=== PATIENT | female | born 1985 | race Caucasian/White ===

== ENCOUNTER 2022-04-28 10:19 | Outpatient (CLI) | payer OTHER, SELFPAY ==
--- NOTE | ~2022-04-28 | US_ITS ---
Abdominal Sonogram: Real-time sonographic imaging of the abdomen was performed. Clinical History: Abdominal pain Findings: The liver appears normal with no evidence of mass lesion or bile duct dilatation. Main por tang vein demonstrates normal direction of flow. The spleen is normal in size without evidence of foca l lesion. The gallbladder is partially distended, and contains echogenic, shadowing gallstones. No d efinite gallbladder wall thickening. The common bile duct measures 2 mm. The visualized pancreas, ao rta, and IVC are unremarkable. The right kidney measures 11.4 cm in length and the left kidney measu res 11.6 cm. There is no hydronephrosis or renal calculus. Impression: Cholelithiasis. Reviewed, dictated and finalized at location [] [employer] Impression: Cholelithiasis.
== END 2022-04-28 10:20 | disposition home or self-care (01) ==
LOC: CHSIMG 10:22
PROVIDERS: PCP Physician Assistant; Visit Provider Physician Assistant
DX: K80.20 Calculus of gallbladder without cholecystitis without obstruction (principal)
CPT/HCPCS: 76700

== ENCOUNTER 2022-11-21 05:20 | Emergency (ER) | payer OTHER, SELFPAY ==
--- NOTE | ~2022-11-21 | CT_ITS ---
CT of the Abdomen and Pelvis: Indication: Abdominal pain Technique: 2.5 mm axial scans were obtained through the abdomen and pelvis following intravenous adm inistration of 100 cc of Omnipaque 350. Dose reduction technique was used on this scan by utilizing a utomated exposure control and iterative reconstruction technique. The dose-length product (DLP) was 7 82.21 mGy-cm. Findings: Scans through the lung bases are unremarkable. The liver, spleen, pancreas, adrenals and kidneys are within normal limits. Mild gallbladder wall thi ckening noted, nonspecific. There are atherosclerotic calcifications of the aorta. No lymphadenopath y. No bowel obstruction or bowel wall thickening. There is no evidence to suggest acute appendicitis. Images through the pelvis were performed. Urinary bladder unremarkable. No adnexal mass seen. No asci smitha. Impression: Mild gallbladder wall thickening, nonspecific finding. No other significant abnormality identified. Reviewed, dictated and finalized at [facility]. Impression: Mild gallbladder wall thickening, nonspecific finding. No other significant abnormality identified.
[2022-11-21 05:20] VITALS: BP 173/92; PULSE 60; RESP 20; TEMP 36.8; O2SAT 99
[2022-11-21] MEDS: MORPHINE SULFATE (*CRX) 4 MG/ML INJ IV PUSH (05:53)
[2022-11-21] MEDS: SODIUM CHLORIDE 0.9% IV 1,000 ML 999 ML IV CONT (05:54)
[2022-11-21] MEDS: ONDANSETRON INJ 4 MG/2 ML VIAL IV PUSH (05:54)
[2022-11-21 05:56] LABS: Basophils Absolute Auto 0.09 K/mm3 (0.00-0.10); Basophils Percent Auto 0.9 % (0.0-1.0); Eosinophils Absolute Auto 0.32 K/mm3 (0.02-0.50); Eosinophils Percent Auto 3.1 % (1.0-6.0); Hematocrit 38.8 % (35.0-49.0); Hemoglobin 12.6 g/dL (12.0-15.0); Immature Granulocyte Absolute 0.02 K/mm3 (0.00-0.00); Immature Granulocyte Percent A 0.2 % (0.0-0.0); Lymphocytes Absolute Auto 3.12 K/mm3 (1.10-4.50); Lymphocytes Percent Auto 30.3 % (18.0-42.0); Mean Corpuscular HGB Conc 32.5 g/dL (32.0-36.0); Mean Corpuscular Hemoglobin 29.4 pg (27.0-31.0); Mean Corpuscular Volume 90.7 fL (78.0-102.0); Mean Platelet Volume 11.6 fl (9.2-11.8); Monocytes Absolute Auto 0.65 K/mm3 (0.10-0.90); Monocytes Percent Auto 6.3 % (2.0-11.0); Neutrophils Absolute Auto 6.1 K/mm3 (1.7-7.2); Neutrophils Percent Auto 59.2 % (50.0-70.0); Platelet Count Result 283 K/mm3 (150-420); Red Blood Count 4.28 M/mm3 (4.20-5.40); Red Cell Distribution Width 14.2 % (11.6-14.4); White Blood Count 10.3 K/mm3 (4.8-10.8)
[2022-11-21 05:59] LABS: Appearance Urine Clear (Clear); Bilirubin Urine Negative (Negative); Blood Urine Negative (Negative); Color Urine Light Yellow (Yellow); Glucose Urine UA Negative (Negative); Ketones Urine Negative (Negative); Leukocyte Esterase Ur Negative LEU/UL (Negative); Nitrate Urine Negative (Negative); Pregnancy On Board Control Positive; Protein Urine Negative (Negative); Specific Grav Ur 1.015 (1.010-1.020); Urine Pregnancy Test Negative; Urobilinogen Urine 0.2 mg/dL (0.2-1.0); pH Urine 6.5 (5.0-8.0)
[2022-11-21 06:00] LABS: Add Urine Microscopic? NO
[2022-11-21 06:02] LABS: INR 0.9; Prothrombin Time 10.2 Seconds (9.50-12.10)
[2022-11-21 06:09] VITALS: BP 142/78; PULSE 52; RESP 18; O2SAT 99
--- NOTE | 2022-11-21 06:13 | ED.GENADULT ---
HPI - General Adult General Chief complaint: Abdominal Pain Stated complaint: abdominal pain; nausea Time Seen by Provider: 11/21/22 05:38 History of Present Illness HPI narrative: Angelina is a 37F with a PMH of pyloric stenosis s/p surgery, gallstones and PUD that presented to the ED with abdominal pain that started last night. She has pain in the epigastric pain that waxes and wanes and sometimes radiates to her back. It does not feel like her ulcer pain. She had one episode of non-bloody emesis last night as well. There is no diarrhea, dysuria or hematuria. Last BM was yesterday. She states there is no way she could be . Related Data Home Medications Medication Instructions Recorded Confirmed Vyvanse 30 mg PO DAILY 11/21/22 11/21/22 buspirone 10 mg PO BID PRN Anxiety 11/21/22 11/21/22 omeprazole 40 mg PO BID 11/21/22 11/21/22 venlafaxine 75 mg PO DAILY 11/21/22 11/21/22 Allergies Allergy/AdvReac Type Severity Reaction Status Date / Time No Known Allergies Allergy Verified 11/21/22 05:35 Review of Systems Review of Systems: All systems reviewed & are unremarkable except as noted in HPI and below Exam Const: General: healthy appearing and no acute distress Nutritional Appearance: well nourished Orientation/consciousness: patient oriented x3 HENMT: Head: normal to inspection Ears: external ears normal Face/Nose/Sinus: Normal external nose present Face and sinus: normal facial exam Eyes: Conjunctivae: conjunctivae normal Pupils: Equal, round and reactive pupils present EOM: EOMs intact bilaterally Neck: Neck: normal visual inspection Chest: Chest palpation & inspection: normal inspection of the chest Resp: Effort & Inspection: normal respiratory effort Auscultation: clear to auscultation bilaterally Cardio: Rate: regular rate Rhythm: regular rhythm GI: Inspection: non-distended GI Palp: Yes Soft to palpation, Yes Tenderness to palpation present (GI) (epigastric and RUQ), No Guarding due to palpation present (GI), No Rigid due to palpation, No Palpable mass present and No Rebound tenderness present Auscultation: Hypoactive bowel sounds present : General: Yes bladder normal to palpation and Yes no CVA tenderness Skin: General skin exam: normal color Rashes: no rashes Wounds: no wounds Neuro: General: patient oriented x3 and moves all extremities Speech: normal speech Extrem: General: normal to inspection Psych: Mental Status: mental status grossly normal Affect: normal affect Course Course Emergency Course: Ordered fluids, morphine, Zofran, UA, Urine Hcg, CT and labs as below. CT of the Abdomen and Pelvis: Indication: Abdominal pain Technique:? 2.5 mm axial scans were obtained through the abdomen and pelvis following intravenous administration of 100 cc of Omnipaque 350. Dose reduction technique was used on this scan by utilizing automated exposure control and iterative reconstruction technique. The dose-length product (DLP) was 782.21 mGy-cm. Findings:? Scans through the lung bases are unremarkable. The liver, spleen, pancreas, adrenals and kidneys are within normal limits. Mild gallbladder wall thickening noted, nonspecific. There are atherosclerotic calcifications of the aorta.? No lymphadenopathy. No bowel obstruction or bowel wall thickening. There is no evidence to suggest acute appendicitis. Images through the pelvis were performed. Urinary bladder unremarkable. No adnexal mass seen. No ascites. Impression: Mild gallbladder wall thickening, nonspecific finding. No other significant abnormality identified. CBC and chemistries were largely unremarkable. UA normal. She was feeling better after fluids and morphine. Vital Signs Vital signs: Vital Signs Temperature 98.2 F 11/21/22 05:20 Pulse Rate 60 11/21/22 05:20 Respiratory Rate 20 11/21/22 05:20 Blood Pressure 173/92 H 11/21/22 05:20 Pulse Oximetry 99 11/21/22 05:20 Oxygen Delivery Room Air 11/21/22 05:20
[2022-11-21 06:19] LABS: Alanine Aminotransferase 34 U/L (14-59); Albumin Level 3.4 g/dL (3.4-5.0); Alkaline Phosphatase 62 U/L (46-116); Anion Gap 9 mmol/L (8-16); Aspartate Amino Transferase 17 U/L (15-37); Bilirubin,Total 0.1 mg/dL (0.00-1.00); Blood Urea Nitrogen 11 mg/dL (7-18); Calcium 8.8 mg/dL (8.5-10.1); Carbon Dioxide 26 mmol/L (21-32); Chloride 105 mmol/L (98-108); Estimated CRCL calculation 94 ml/min; Estimated Glomerular Filt Rate > 60; Glucose 125 mg/dL (70-99); Lipase 32 U/L (16-77); Osmolality Calculated 290 mOsm/kg (285-295); Potassium 3.9 mmol/L (3.5-5.1); Sodium 140 mmol/L (136-145)
[2022-11-21 06:29] LABS: CRP < 0.5 mg/dL (0.0-0.9)
[2022-11-21 06:30] VITALS: PULSE 66; RESP 18; O2SAT 98
== END 2022-11-21 07:14 | disposition home or self-care (01) ==
PROVIDERS: Emergency Provider Family Medicine; PCP Family Medicine
DX: R10.9 Unspecified abdominal pain (principal)
CPT/HCPCS: 36415; 74177; 80053; 81003; 81025; 83605; 83690; 85025; 85610; 86140; 96361; 96374; 96375; 99284; J2270; J2405; J7030; Q9967

== ENCOUNTER 2022-12-13 02:02 | Emergency (ER) | payer OTHER, SELFPAY ==
--- NOTE | ~2022-12-13 | US_ITS ---
Limited Abdominal Sonogram: Real-time sonographic imaging of the right upper quadrant was performed. Clinical History: Cholecystitis Findings: The liver appears minimally echogenic, with no evidence of mass lesion or bile duct dilata tion. Main portal vein demonstrates normal direction of flow. The gallbladder is partially distended, with a 2.8 cm shadowing gallstone present. Gallbladder wall is thickened to 8 mm. The common bile du ct measures 3 mm. The visualized pancreas, aorta, and IVC are unremarkable. Impression: Cholelithiasis with gallbladder wall thickening. Constellation of findings raises possibility of acut e cholecystitis, although sonographic Cano's sign is negative. Correlate clinically. Consider HIDA scan as indicated. Reviewed, dictated and finalized at location . Impression: Cholelithiasis with gallbladder wall thickening. Constellation of findings rais es possibility of acute cholecystitis, although sonographic Cano's sign is ne gative. Correlate clinically. Consider HIDA scan as indicated.
--- NOTE | ~2022-12-13 | CT_ITS ---
CT of the Abdomen and Pelvis: Indication: Abdominal pain Technique: 2.5 mm axial scans were obtained through the abdomen and pelvis following intravenous adm inistration of 100 cc of Omnipaque 350. Dose reduction technique was used on this scan by utilizing a utomated exposure control and iterative reconstruction technique. The dose-length product (DLP) was 7 30.45 mGy-cm. COMPARISON: 11/21/2022 Findings: Scans through the lung bases are unremarkable. The liver, spleen, pancreas, adrenals and kidneys are within normal limits. There is mild gallbladder wall thickening, without definite gallstone. There are atherosclerotic calcifications of the aorta. No lymphadenopathy. No bowel obstruction or bowel wall thickening. Normal appendix. Images through the pelvis were performed. Urinary bladder unremarkable. No adnexal mass seen. No asci smitha. Impression: Mild gallbladder wall thickening, nonspecific. Consider ultrasound and/or HIDA scan for further evalu ation for gallbladder disease, as indicated. Reviewed, dictated and finalized at [facility]. Impression: Mild gallbladder wall thickening, nonspecific. Consider ultrasound and/or HIDA scan for further evaluation for gallbladder disease, as indicated.
[2022-12-13 02:14] VITALS: BP 143/86; PULSE 78; RESP 18; TEMP 36.5; O2SAT 99
--- NOTE | 2022-12-13 02:28 | ECG_ITS ---
Measurements Intervals [place] Rate: 73 P: 60 CA: 134 QRS: 28 QRSD: 101 T: 36 QT: 392 QTc: 435 Interpretive Statements SINUS RHYTHM WITH A SHORT CA INTERVAL NO PREVIOUS ECG AVAILABLE FOR COMPARISON Electronically Signed On 12-13-2022 19:41:07 CDT by Angelina Jain M.D.
--- NOTE | 2022-12-13 02:30 | ED.ABDPAIN ---
HPI - Abdominal Pain General Chief Complaint: Abdominal Pain Stated Complaint: abdominal pain Source: patient Mode of arrival: ambulatory Limitations: no limitations History of Present Illness HPI narrative: Patient is a 29-year-old female with recurrent abdominal pain in the upper abdomen. She has been through multiple workups and prior specialists. She is awaiting a garment sorter specialist at this time. So far to date, no findings have been made according to the patient. MD elicited complaint: abdominal pain Pertinent past history: none Onset (ago): hour(s) Pain Consistency: constant Location: epigastric, LUQ and RUQ Severity: severe Pain scale (0-10): 10 Quality: sharp Radiation: none Migration to: no migration Exacerbating factors: nothing Relieving factors: nothing Context: confirms other ( episodic and recurrent abdominal pains) Associated symptoms: denies other symptoms Related Data Home Medications Medication Instructions Recorded Confirmed buspirone 10 mg tablet 10 mg PO BID 12/13/22 12/13/22 lisdexamfetamine 30 mg capsule 30 mg PO DAILY 12/13/22 12/13/22 (Vyvanse) omeprazole 40 mg capsule,delayed 40 mg PO BID 12/13/22 12/13/22 release venlafaxine 75 mg capsule,extended 75 mg PO DAILY 12/13/22 12/13/22 release 24 hr Allergies Allergy/AdvReac Type Severity Reaction Status Date / Time No Known Allergies Allergy Verified 11/21/22 05:35 Review of Systems Review of Systems: All systems reviewed & are unremarkable except as noted in HPI and below Constitutional: Constitutional: Reports no additional constitutional complaints Eyes: Eyes: Reports no additional eye complaints ENT: Reports system reviewed and no additional complaints, except as documented Cardiovascular: Cardiovascular: Reports no additional cardiovascular complaints Respiratory: Respiratory: Reports no additional respiratory complaints Gastrointestinal: Gastrointestinal: Reports no additional gastrointestinal complaints Genitourinary: Genitourinary: Reports no additional female genitourinary complaints Musculoskeletal: Musculoskeletal: Reports no additional musculoskeletal complaints Integumentary/Breasts: Skin/Breast: Reports system reviewed and no additional complaints, except as docu Neurologic: Reports system reviewed and no additional complaints, except as documented Psychiatric: Psychiatric: Reports no additional psychiatric complaints Endocrine: Endocrine: Reports no additional endocrine complaints Hematologic/Lymphatic: Hematologic/Lymphatic: Reports no additional hematologic/lymphatic complaints Allergic/Immunologic: Allergic/Immunologic: Reports no additional allergic/immunologic complaints Exam Const: General: healthy appearing Nutritional Appearance: well nourished Orientation/consciousness: patient oriented x3 Limitations: no limitations HENMT: Head: normal to inspection Eyes: Conjunctivae: conjunctivae normal Neck: Neck: normal visual inspection Chest: Chest palpation & inspection: normal inspection of the chest Resp: Effort & Inspection: normal respiratory effort Auscultation: clear to auscultation bilaterally Cardio: Rate: regular rate Rhythm: regular rhythm GI: Inspection: distended GI Palp: Yes Soft to palpation, Yes Tenderness to palpation present (GI), No Guarding due to palpation present (GI), No Rigid due to palpation, No Hernia present, No Palpable mass present and No Rebound tenderness present Auscultation: Hypoactive bowel sounds present : General: Yes bladder normal to palpation Back/Spine/Pelvis: Back: no CVA tenderness Skin: General skin exam: normal color Rashes: no rashes Wounds: no wounds Neuro: General: patient oriented x3, moves all extremities and no meningeal signs Cranial nerves: Yes Nystagmus not present Extrem: General: normal to inspection Psych: Mental Status: mental status grossly normal Course Vital Signs Vital signs: Vital Signs
[2022-12-13] MEDS: MORPHINE SULFATE (*CRX) 2 MG/ML INJ IV PUSH (02:47)
[2022-12-13] MEDS: ONDANSETRON INJ 4 MG/2 ML VIAL IV PUSH (02:47)
[2022-12-13 02:58] LABS: Basophils Absolute Auto 0.08 K/mm3 (0.00-0.10); Basophils Percent Auto 0.9 % (0.0-1.0); Eosinophils Absolute Auto 0.31 K/mm3 (0.02-0.50); Eosinophils Percent Auto 3.5 % (1.0-6.0); Hematocrit 38.8 % (35.0-49.0); Immature Granulocyte Absolute 0.02 K/mm3 (0.00-0.00); Immature Granulocyte Percent A 0.2 % (0.0-0.0); Lymphocytes Absolute Auto 3.16 K/mm3 (1.10-4.50); Lymphocytes Percent Auto 35.8 % (18.0-42.0); Mean Corpuscular HGB Conc 33.5 g/dL (32.0-36.0); Mean Corpuscular Hemoglobin 29.7 pg (27.0-31.0); Mean Corpuscular Volume 88.8 fL (78.0-102.0); Mean Platelet Volume 10.7 fl (9.2-11.8); Monocytes Absolute Auto 0.61 K/mm3 (0.10-0.90); Monocytes Percent Auto 6.9 % (2.0-11.0); Neutrophils Absolute Auto 4.7 K/mm3 (1.7-7.2); Neutrophils Percent Auto 52.7 % (50.0-70.0); Platelet Count Result 303 K/mm3 (150-420); Red Blood Count 4.37 M/mm3 (4.20-5.40); Red Cell Distribution Width 12.9 % (11.6-14.4); White Blood Count 8.8 K/mm3 (4.8-10.8)
[2022-12-13 03:00] LABS: Appearance Urine Clear (Clear); Bilirubin Urine Negative (Negative); Blood Urine Negative (Negative); Color Urine Yellow (Yellow); Glucose Urine UA Negative (Negative); Ketones Urine Trace (Negative); Leukocyte Esterase Ur Negative (Negative); Nitrate Urine Negative (Negative); Protein Urine Negative (Negative); Specific Grav Ur >= 1.030 (1.010-1.020); Urobilinogen Urine 0.2 mg/dL (0.2-1.0)
[2022-12-13 03:01] LABS: Add Urine Microscopic? YES; Amorphous Sediment Urine Few; Bacteria Urine 1+ /hpf; Mucus Urine Heavy /lpf; Squamous Epithelial Cell Urine Many /hpf (Few)
[2022-12-13 03:03] LABS: Pregnancy On Board Control Positive; Urine Pregnancy Test Negative
[2022-12-13 03:13] LABS: Alanine Aminotransferase 27 U/L (14-59); Albumin Level 3.7 g/dL (3.4-5.0); Alkaline Phosphatase 69 U/L (46-116); Anion Gap 7 mmol/L (8-16); Aspartate Amino Transferase < 10 U/L (15-37); Bilirubin,Total 0.3 mg/dL (0.00-1.00); Blood Urea Nitrogen 22 mg/dL (7-18); Carbon Dioxide 29 mmol/L (21-32); Chloride 103 mmol/L (98-108); Estimated CRCL calculation 81 ml/min; Estimated Glomerular Filt Rate > 60; Glucose 118 mg/dL (70-99); Lipase 32 U/L (16-77); Osmolality Calculated 292 mOsm/kg (285-295); Potassium 3.5 mmol/L (3.5-5.1); Sodium 139 mmol/L (136-145); Total Protein 7.2 g/dL (6.4-8.2)
[2022-12-13 03:15] LABS: Troponin I < 4.0 ng/L (0.00-60.4)
[2022-12-13] MEDS: MORPHINE SULFATE (*CRX) 4 MG/ML INJ IV PUSH ×2 (03:35→07:47)
[2022-12-13 04:00] VITALS: BP 138/74; PULSE 85; RESP 18; O2SAT 97
[2022-12-13] MEDS: KETOROLAC 30 MG/ML VIAL (*BKC) IV PUSH (04:11)
--- NOTE | 2022-12-13 04:35 | PC.NURSE ---
Pt still c/o some pain and discomfort and pain meds not helping c pain. Pt wanting to know when CT report will be back. Call placed to state rad by this RN for length of time before a report is back. Told by stat rad it is taking 2.5-3 hrs for reads and it will be at least another hour before this pts. CT is read. Pt informed on status, pt given warm blanket and lying on side. ERP Dr Jack informed on status. Pts VSS, will continue to await report before POC is determined.
--- NOTE | 2022-12-13 05:35 | PC.NURSE ---
Pt resting, still awaiting CT results. Call wyatt at pt side.
[2022-12-13 06:09] VITALS: BP 111/64; PULSE 74; RESP 18; O2SAT 99
--- NOTE | 2022-12-13 06:10 | PC.NURSE ---
Pt resting on cot side lying position. She now reports her pain is much less and tolerable. VSS, explained to pt about wait for CT results and hope to have some reading soon. Pt very understandable about wait times. Call wyatt at side, pt has ice chips per request and OK per ERP.
--- NOTE | 2022-12-13 06:46 | PC.NURSE ---
Reading of CT back and report reviewed by ERP, pt informed on POC for consult c a surgeon at [place]. Calls made, pt remians stable at this time and pain is much better per pt report.
[2022-12-13] MEDS: FAMOTIDINE 20 MG/2 ML VIAL IV PUSH (07:47)
[2022-12-13 07:50] VITALS: BP 129/68; PULSE 68; RESP 14; TEMP 36.3; O2SAT 99
[2022-12-13 08:28] LABS: Lactic Acid Reflex 0.7 mmol/L (0.4-2.0)
[2022-12-13 09:00] VITALS: BP 128/65; PULSE 62; RESP 18; TEMP 36.8; O2SAT 99
== END 2022-12-13 09:09 | disposition short-term general hospital (02) ==
PROVIDERS: Internal Medicine Critical Care Medicine; Emergency Provider Emergency Medicine; PCP Physician Assistant
DX: K82.9 Disease of gallbladder, unspecified (principal)
CPT/HCPCS: 36415; 74177; 76705; 80053; 81001; 81025; 83605; 83690; 84484; 85025; 93005; 96374; 96375; 96376; 99285; J1885; J2270; J2405; Q9967

== ENCOUNTER 2023-02-03 11:28 | Outpatient (CLI) | payer OTHER, SELFPAY ==
--- NOTE | 2023-02-03 11:53 | ECG_ITS ---
Measurements Intervals [facility] Rate: 51 P: 61 [place]: 126 QRS: 30 QRSD: 94 T: 20 QT: 411 QTc: 379 Interpretive Statements SINUS BRADYCARDIA MINIMAL Q WAVES- HIGH LATERAL LEADS BORDERLINE ST-T WAVE ABNORMALITY- INFERIOR LEADS BORDERLINE ECG COMPARED TO ECG 12/13/2022 02:41:18 SINUS BRADYCARDIA NOW PRESENT Electronically Signed On 02-03-2023 14:44:41 CDT by Irineo Solano D.O.
[2023-02-03 12:47] LABS: Amylase 50 U/L (30-110)
== END 2023-02-03 11:29 | disposition home or self-care (01) ==
LOC: ANHLAB 11:30
PROVIDERS: PCP Physician Assistant; Referring Provider Anesthesiology; Visit Provider Surgery
DX: K80.10 Calculus of gallbladder with chronic cholecystitis without obstruction (principal); Z72.0 Tobacco use; Z01.818 Encounter for other preprocedural examination; R94.31 Abnormal electrocardiogram [ECG] [EKG]
CPT/HCPCS: 36415; 82150; 86850; 86900; 86901; 93005

== ENCOUNTER 2023-02-05 02:18 | Day surgery (SDC) | payer OTHER, SELFPAY ==
[2023-01-31 14:26] VITALS: BMI 25.9
--- NOTE | 2023-01-31 14:34 | PC.NURSE ---
Report to the Outpatient Waiting Room, entrance under the green pavilion located off [facility], at time _0700 on date 02/05/23_. Planned Procedure Time: _0900. Time changes happen often and if your time is changed the preop area will call you the afternoon before. - You and your visitor will be asked to self-screen and do not enter if you have any COVID symptoms. - A mask is optional within the hospital at this time. Patients may have clear liquids (water, carbonated beverages, clear teas, apple juice) until 3 hours prior to surgery with a maximum of 20 ounces. - No food from midnight until time of surgery - Infants may have breast milk until 4 hours before surgery, formula 6 hours prior to surgery. - Children will be allowed to drink immediately following surgery. If applicable, please bring a bottle or sippy cup to assist with drinking. Juice, water, soda, and popsicles are readily available. For infants on formula, please bring formula the day of surgery. Pacifiers are allowed. Take the following medications with a SIP of water the morning of surgery: VYVANCE, BUSPIRONE AND TYLENOL IF NEEDED DO NOT STOP ANY OF YOUR OTHER PRESCRIPTION MEDICATIONS PRIOR TO SURGERY ?EXCEPT THE FOLLOWING Medications to discontinue per physician VITAMIN D , IBUPROFEN Date to take last dose 01/31/23 Please no make-up, nail greenlandic, hairspray, perfume, deodorant, or body powder the day of surgery. No jewelry (including any body piercings) or valuables the day of surgery, leave them at home. Please take a shower or bath the night before, or the morning of, surgery with HIBICLENS antibacterial soap. Wear comfortable, loose fitting clothing. Children are encouraged to wear pajamas. - Jewelry must be removed prior to entering the operating room. Rings and piercings that are not removed may be cut off. - The hospital will not accept responsibility for valuables. - Please leave all valuables, including medications, at home the day of surgery. If you are going home after surgery, a licensed chain saw driver must drive you home. - NO public transportation without another adult if you receive anesthesia. - We recommend that an adult stay with you for 24 hours following discharge. - We also recommend that you do not drive, make important decision, drink alcoholic beverages, or take any drugs that were not prescribed by your health care provider for at least 24 hours after your discharge time. For Pediatric surgeries, we recommend two adults accompany the child home. Follow any additional instructions given to you from your surgeon. If you or anyone in your household have experienced Covid symptoms in the past week, please notify your surgeon or the nurse liaison at the phone number below for possible testing. Telephone instructions given to ___DAVIS and asked if any additional questions and then verbalized understanding. Patient advised to call surgeon office or pre surgery nurse liaison [phone] if any additional questions.
[2023-02-05] VITALS (8 sets, daily range): BP systolic 102–143; BP diastolic 52–78; PULSE 48–72; RESP 14–20; TEMP 36.2–36.3; O2SAT 99–100
--- NOTE | 2023-02-05 07:49 | WPDANESEPPF ---
Anes - Initial Pre Proc Eval Procedure: Operation Date: 02/05/23 09:00 Proposed Procedures p Laparoscopic Cholecystectomy, Possible Open - Frankie Lozano MD Date/Time: 02/05/23 07:49 Surgeon: Frankie Lozano MD Pre Op Diagnosis: Chr Cholecystitis with Calculous Patient Data Age: 37 Gender: F Height: 1.7 m Weight: 75 kg Allergies Allergy/AdvReac Type Severity Reaction Status Date / Time No Known Allergies Allergy Verified 01/31/23 14:25 Home Medications Medication Instructions Recorded Confirmed Type buspirone 10 mg tablet 10 mg PO BID PRN Anxiety 12/13/22 01/31/23 History omeprazole 40 mg capsule,delayed 40 mg PO BID 12/13/22 01/31/23 History release lisdexamfetamine 40 mg capsule 40 mg PO DAILY 01/10/23 01/31/23 History (Vyvanse) cholecalciferol (vitamin D3) 1,250 1,250 mcg PO WEEKLY 01/17/23 01/31/23 History mcg (50,000 unit) tablet acetaminophen 325 mg tablet 650 mg PO [id number] PRN Pain 01/31/23 01/31/23 History (Tylenol) ibuprofen 200 mg tablet 400 mg PO Q6H PRN Pain 01/31/23 01/31/23 History Patient hx anesthesia problems: none Family hx anesthesia problems: none Results Review: All pre-operative results and documents have been reviewed as part of the pre-operative evaluation. [facility] Past Medical History Medical History Anxiety Surgical History Surgical History History of repair of pyloric stenosis in 1999 History of tonsillectomy Family History Family History Mother Diabetes mellitus Hypertension Grandparent , lung cancer Cancer Other Cerebrovascular accident Heart disease Social History Social History Smoking packs per day: 1 Smoking cigarettes per day: 20.0 Years smoked: 20 Smoking pack-years: 20.00 Smoking status: Current every day smoker Alcohol intake: former Substance use type: marijuana Other substance usage details: RARELY Living arrangements: with family Additional living arrangements comments: living with children and current boyfriend Arcenio Posadas Final PreProcedure Day of Procedure 02/05/23 07:49 Patient weight: overweight Heart: regular rate and rhythm Lungs: clear to auscultation Airway: Mallampati scale class II Neurological: alert and oriented Last oral intake: >/= 8 hours ASA classification: II Emergent: no Anesthetic plan: proceed Anesthesia type and monitoring: general ETT and standard monitoring Results Review: All pre-operative results and documents have been reviewed as part of the pre-operative evaluation. Informed Consent: The patient's anesthetic plan and its attendant risks and benefits were discussed with the patient/family/POA. Questions were solicited and answers provided to the satisfaction of the patient/family/POA.
[2023-02-05] MEDS: KETOROLAC 15 MG/ML VIAL (*BKC) IV PUSH (08:25)
[2023-02-05] MEDS: ACETAMINOPHEN 500 MG TABLET 1000 MG PO (08:25)
[2023-02-05] MEDS: LACTATED RINGERS 1,000 ML 30 ML IV CONT ×2 (08:25→10:35)
[2023-02-05] MEDS: SCOPOLAMINE 1.5 MG PATCH TRANSDERM (08:35)
--- NOTE | 2023-02-05 09:08 | WPDHPUPDATE1 ---
History and Physical Update Update Date/Time: 02/05/23 09:08 History and Physical has been reviewed, including an updated exam of the patient. There are NO changes in the patient's condition. Risks, benefits, and alternatives have been discussed and questions answered. Patient agrees to proceed with procedure.
[2023-02-05] MEDS: ceFAZolin 2 GM/D5W 50 ML 2 GM/50 ML BAG IVPB (09:17)
[2023-02-05] MEDS: BUPivacaine HCL 0.5% PF 30 ML VIAL 20 ML INFILTRATE (09:46)
[2023-02-05] MEDS: LIDO 1%/EPINEPHRINE 1:100,000 20 ML VIAL INFILTRATE (09:47)
--- NOTE | 2023-02-05 10:43 | W.PM.PROC2 ---
Procedure Note - Detailed Date of Procedure 02/05/23 Pre-op Diagnosis Chr Cholecystitis with Calculous Post-op Diagnosis Same Procedure Performed Laparoscopic cholecystectomy Surgeon Frankie Lozano MD [employer] Operator Greg JOHNSON Anesthesia General Indications patient is a 37-year-old white female who has been having issues with intermittent but chronic right upper quadrant abdominal pain worse with eating. She had an ultrasound performed showed thickening of the gallbladder wall with a large gallstone. She appears to have chronic cholecystitis secondary cholelithiasis and presents now for an elective laparoscopic cholecystectomy. Findings Patient had large almost 2cm gallstone. Gallbladder wall was mildly thickened but no acute inflammatory changes. There were some mild old acute inflammatory adhesions of the omentum to the gallbladder wall. Description of Procedure After informed consent was obtained patient brought to the operating room where she was placed in supine position and general endotracheal anesthesia was administered. The abdomen was then prepped and draped usual sterile fashion. A time-out was then performed correctly identifying the patient as well as procedure to be performed and verified she was given perioperative IV antibiotics. I then made a small periumbilical incision with a scalpel then with traction upwards on the anterior abdominal wall a Veress needle was placed into the abdomen without difficulty. The abdomen was then insufflated to adequate pneumoperitoneum of 15mmHg of CO2. A 5mm Optiview port was then used to enter the abdomen at the periumbilical trocar port site. Once inside the abdomen I then placed an epigastric 10mm trocar port 2 right lateral subcostal 5mm trocar ports all under direct visualization the gallbladder is visualized in the gallbladder wall was mildly thickened with some chronic inflammatory changes. There were some chronic adhesions of the omentum to the gallbladder wall but there is no acute inflammatory changes. A laparoscopic grasper is used to of the gallbladder at the dome and it was elevated over the right half to 3rd of the right shoulder. I then proceeded to strip down the omental adhesions to the gallbladder wall bluntly without difficulty. A 2nd grasper was then used to hold the gallbladder at the infundibulum. I then proceeded to dissect down along the infundibular gallbladder stripping away the visceral peritoneum until I identified the cystic duct. The cystic duct was then dissected out circumferentially. The cystic duct lymph node was also identified this was dissected free of the surrounding tissues and removed from the abdomen is sent to pathology with the gallbladder. The cystic artery was then identified dissected out circumferentially as well. Posterior wall the gallbladder at the infundibulum dissected free liver to the critical view was obtained. At this point I then placed 2 clips proximally cystic duct and 2 clips distally high on infundibular gallbladder. Cystic duct was divided with Endo Anna. In a similar fashion cystic artery clipped and divided as well. The gallbladder was then resected off the liver utilizing electrocautery. No gallbladder stones or bile was spilled. Once the gallbladder is free from the liver is placed into an Endo-Catch bag and brought out through the epigastric port site. The gallbladder had a large approximate 2cm gallstone within it. The gallbladder and stones sent to pathology for examination. I then irrigated out the right upper quadrant the abdomen gallbladder fossa copious sterile saline solution. Hemostasis was excellent. There is no evidence of bile leak. Then aspirated the fluid from the right upper quadrant the abdomen from the pelvis. I then removed all the trocar ports under visualization all port sites appeared hemostatic. I then allowed the abdomen decompressed. I irrigated out the port sites sterile saline solution hemostasis w
[2023-02-05] MEDS: oxyCODONE HCL (*CRX) 5 MG TAB IR PO (11:49)
== END 2023-02-05 12:30 | disposition home or self-care (01) ==
PROVIDERS: PCP Physician Assistant; Visit Provider Surgery
PROC: 0FT44ZZ Resection of Gallbladder, Percutaneous Endoscopic Approach (ICD-10-PCS; CPT 47562; principal; 2023-02-05 09:00)
DX: K80.10 Calculus of gallbladder with chronic cholecystitis without obstruction (principal); F41.9 Anxiety disorder, unspecified; F17.210 Nicotine dependence, cigarettes, uncomplicated; F12.90 Cannabis use, unspecified, uncomplicated
CPT/HCPCS: 47562; 88304; A9270; C1713; J0690; J1100; J1885; J2250; J2405; J2704; J3010; J7030; J7120

== ENCOUNTER 2025-02-13 23:04 | Emergency (ER) | payer OTHER, SELFPAY ==
--- NOTE | ~2025-02-13 | XR_ITS ---
Examination: XR shoulder LT min 2V Clinical History: LEFT SHOULDER PAIN. ARM IN SLING. HX OF LEFT AC INJURY. Comparison: None Technique: 4 views left shoulder Findings/impression: 1. No fracture or dislocation left shoulder. 2. No significant degenerative changes. Reviewed, dictated and finalized at location R.
[2025-02-13 23:05] VITALS: BP 136/74; PULSE 86; RESP 20; TEMP 36.6; O2SAT 97
--- NOTE | 2025-02-13 23:06 | ED.UPPEXIN ---
HPI - Extremity Injury (Upper) General Chief Complaint: Medical Clearance Stated Complaint: DISLOCATED SHOULDER Time Seen by Provider: 02/13/25 23:05 Source: patient and police Mode of arrival: ambulatory Limitations: no limitations History of Present Illness HPI narrative: Patient is a 39-year-old female with a left shoulder pain for the past 3-4 weeks. She is incarcerated at this time and was brought here for medical clearance of her left shoulder. MD complaint: injury to: left and shoulder Onset (ago): week(s) (3-4) Other injuries: none Place: home Severity: moderate Severity scale (1-10): 4 Relieving factors: immobilization Exacerbating factors: movement of extremity Context: other (Unknown) Associated symptoms: denies other symptoms Treatments prior to arrival: cold therapy Related Data Home Medications ?Medication ?Instructions ?Recorded ?Confirmed ?Last Taken ?Type buspirone 10 mg tablet 10 mg PO BID PRN Anxiety 12/13/22 01/31/23 Unknown History omeprazole 40 mg capsule,delayed 40 mg PO BID 12/13/22 01/31/23 Unknown History release lisdexamfetamine 40 mg capsule 40 mg PO DAILY 01/10/23 01/31/23 Unknown History (Vyvanse) cholecalciferol (vitamin D3) 1,250 1,250 mcg PO WEEKLY 01/17/23 01/31/23 Unknown History mcg (50,000 unit) tablet acetaminophen 325 mg tablet 650 mg PO [id number] PRN Pain 01/31/23 01/31/23 Unknown History (Tylenol) ibuprofen 200 mg tablet 400 mg PO Q6H PRN Pain 01/31/23 01/31/23 Unknown History Allergies Allergy/AdvReac Type Severity Reaction Status Date / Time No Known Allergies Allergy Verified 02/13/25 23:47 Review of Systems Review of Systems: All systems reviewed & are unremarkable except as noted in HPI and below Constitutional: Constitutional: Reports no additional constitutional complaints Eyes: Eyes: Reports no additional eye complaints ENT: Reports system reviewed and no additional complaints, except as documented Cardiovascular: Cardiovascular: Reports no additional cardiovascular complaints Respiratory: Respiratory: Reports no additional respiratory complaints Gastrointestinal: Gastrointestinal: Reports no additional gastrointestinal complaints Genitourinary: Genitourinary: Reports no additional female genitourinary complaints Musculoskeletal: Musculoskeletal: Reports no additional musculoskeletal complaints Integumentary/Breasts: Skin/Breast: Reports system reviewed and no additional complaints, except as docu Neurologic: Reports system reviewed and no additional complaints, except as documented Psychiatric: Psychiatric: Reports no additional psychiatric complaints Endocrine: Endocrine: Reports no additional endocrine complaints Hematologic/Lymphatic: Hematologic/Lymphatic: Reports no additional hematologic/lymphatic complaints Allergic/Immunologic: Allergic/Immunologic: Reports no additional allergic/immunologic complaints PMFSH Past Medical History Medical History Anxiety Surgical History Surgical History History of tonsillectomy History of repair of pyloric stenosis in 1999 Family History Family History Mother Diabetes mellitus Hypertension Grandparent , lung cancer Cancer Other Cerebrovascular accident Heart disease Social History Social History Smoking packs per day: 1 Smoking cigarettes per day: 20.0 Years smoked: 20 Smoking pack-years: 20.00 Smoking status: Current every day smoker Alcohol intake: former Substance use type: marijuana Other substance usage details: RARELY Living arrangements: with family Additional living arrangements comments: living with children and current boyfriend Exam Const: General: healthy appearing Nutritional Appearance: well nourished Orientation/consciousness: patient oriented x3 HENMT: Head: normal to inspection Ears: external ears normal Face/Nose/Sinus: Normal external nose present Eyes: Conjunctivae: conjunctivae normal Pupils: Equal, round and reactive pupils present EOM: EOMs intact bilaterally Neck: Neck: normal visual inspection Chest: Chest palpation & inspection: normal inspection of the chest Resp: Effort & Inspection: normal respiratory effort and not labored Auscultation: clear to auscultation bilaterally and no crackles Cardio: Rate: regular rate Rhythm: regular rhythm Heart sounds: no murmurs GI: Inspection: non-distended GI Palp: Yes Soft to palpation and No Tenderness to palpation present (GI) Auscultation: normal bowel sounds : General: Yes bladder normal to palpation Back/Spine/Pelvis: Back: no CVA tenderness Skin: General skin exam: normal color Rashes: no rashes Wounds: no wounds Neuro: General: patient oriented x3, moves all extremities and no meningeal signs Extrem: General: normal to inspection, no clubbing, cyanosis or edema and no pedal edema Other: Left shoulder tenderness to palpation however range of motion is also painful but the joint is in the socket without dislocation Psych: Mental Status: mental status grossly normal Affect: normal affect Attitude: cooperative Course Vital Signs Vital signs: Vital Signs Temperature 36.6 C 02/13/25 23:05 Pulse Rate 86 02/13/25 23:05 Respiratory Rate 20 02/13/25 23:05 Blood Pressure 136/74 02/13/25 23:05 Pulse Oximetry 97 02/13/25 23:05 Oxygen Delivery Room Air 02/13/25 23:05 Temperature 36.6 C 02/13/25 23:05 Pulse Rate 70 02/13/25 23:52 Respiratory Rate 20 02/13/25 23:52 Blood Pressure 121/68 02/13/25 23:52 Pulse Oximetry 99 02/13/25 23:52 Oxygen Delivery Room Air 02/13/25 23:52 MDM - Extremity Injury (Upper) MDM Narrative Medical decision making narrative: Patient is a 39-year-old female with a left shoulder pain for the past few weeks. She has an MRI planned in the next week. She is on her way to intermediate at this time and needed medical clearance with her left shoulder. Patient is medically cleared after negative shoulder x-ray. Toradol IM. Imaging Data Attestation: I personally reviewed and interpreted this imaging study as follows: My impression: Left shoulder x-ray is negative for acute process pending final reading Discharge Plan Discharge Clinical Impression: Derangement of left shoulder joint Patient Disposition: Home Condition: Stable Instructions: Shoulder Pain (ED) Additional Instructions: Please follow-up with primary doctor as planned in the next week. Please continue planning for the MRI. Patient is medically cleared for intermediate at this time. There is no dislocation of the left shoulder. There is no fracture of the left shoulder. She may wear her sling and use ice as needed. Ibuprofen and Tylenol as needed for pain. Patient Language: Albanian Prescriptions: No Action omeprazole 40 mg capsule,delayed release(DR/EC) 40 mg PO BID buspirone 10 mg tablet 10 mg PO BID PRN (Reason: Anxiety) Vyvanse 40 mg capsule 40 mg PO DAILY cholecalciferol (vitamin D3) 1,250 mcg (50,000 unit) tablet 1,250 mcg PO WEEKLY Rx Instructions: SUNDAY acetaminophen [Tylenol] 325 mg Tablet 650 mg PO [id number] PRN (Reason: Pain) ibuprofen 200 mg Tablet 400 mg PO Q6H PRN (Reason: Pain) oxycodone 5 mg tablet 5 mg PO Q6H PRN (Reason: pain) Qty: 12 0RF Follow-up/Referrals: Marycruz,Magda Horton MD [Primary Care Provider, Unknown] Stand Alone Forms: Work/School Release IP Time of Disposition: 23:29
[2025-02-13] MEDS: KETOROLAC (*BKC) 60 MG/2 ML VIAL IM (23:32)
[2025-02-13 23:52] VITALS: BP 121/68; PULSE 70; RESP 20; O2SAT 99
== END 2025-02-13 23:52 | disposition home or self-care (01) ==
LOC: CHSED 23:47
PROVIDERS: Emergency Provider Emergency Medicine; PCP Family Medicine
DX: M24.9 Joint derangement, unspecified (principal); F17.210 Nicotine dependence, cigarettes, uncomplicated
CPT/HCPCS: 73030; 96372; 99283; J1885